=== PATIENT | male | born 1940 | race Caucasian/White ===

== ENCOUNTER 2019-03-15 10:59 | Inpatient (IN) ==
--- NOTE | 2019-02-04 15:47 | PAT Medication Instructions ---
Medication Instructions Date of Service February 04, 2019 Home Medications Calcium 600-D3 Plus 1 tab PO BIDM aspirin [Aspirin Low Dose] 81 mg PO QPM atenolol 25 mg PO QAM calcium carbonate [Tums] 200 mg PO BID PRN cholecalciferol (vitamin D3) [Vitamin D3] 1,000 unit PO QAM garlic 1,000 mg PO QAM glucos sul [id number]-avi-[id number]-C-Mn [Glucosamine Chondroitin] 1 cap PO BIDM irbesartan 150 mg PO QDL Men's 50 Plus Daily Formula 1 tab PO QPM omeprazole 20 mg PO Q OTHER DAY ASK your prescriber and surgeon aspirin [Aspirin Low Dose] 81 mg PO QPM STOP taking 2 weeks before surgery (or as soon as possible if surgery is within 2 weeks) garlic 1,000 mg PO QAM glucos sul [id number]-C-Mn [Glucosamine Chondroitin] 1 cap PO BIDM DO NOT take the morning of surgery Calcium 600-D3 Plus 1 tab PO BIDM calcium carbonate [Tums] 200 mg PO BID PRN cholecalciferol (vitamin D3) [Vitamin D3] 1,000 unit PO QAM irbesartan 150 mg PO QDL Take morning of surgery With a small sip of water, OTHERWISE NOTHING TO EAT OR DRINK AFTER MIDNIGHT: atenolol 25 mg PO QAM omeprazole 20 mg PO Q OTHER DAY Take evening before surgery Calcium 600-D3 Plus 1 tab PO BIDM calcium carbonate [Tums] 200 mg PO BID PRN (if needed) Men's 50 Plus Daily Formula 1 tab PO QPM Other Notes If you have any questions please call us at [phone] or [phone] or [phone] or [phone]
--- NOTE | 2019-02-05 10:30 | Anesthesiology Consultation ---
Date of Service February 05, 2019 Assessment & Plan (1) Encounter for pre-operative examination: Cardio: 04/11/18: no cardiac complaints. Stable aortic root size. "No further testing is necessary at this time." Monitoring with yearly ECHO's. Chart Review Chart Review: Acceptable Risk for Surgery and Patient seen in Pre Admission Testing Teaching & Discussion Pre-Anesthesia Teaching/Discussion Notes: Instructed NPO after midnight before surgery,except medications with 15 cc of water. Medication instructions provided according to the PAT guidelines. History Surgery Operation Date: 03/15/19 07:00 Proposed Procedures p Right Reverse Total Shoulder Arthroplasty - Andre Sterling DO Height/Weight Height: 5 ft 10 in Weight: 89.9 kg Allergies Allergy/AdvReac Type Severity Reaction Status Date / Time No Known Allergies Allergy Verified 01/30/19 10:10 Medications Home Medications Medication Instructions Recorded Confirmed Last Taken Ca-D3-mag tt-hdtg-zvx-chris-bor 1 tab PO BIDM 01/30/19 01/30/19 Unknown [Calcium 600-D3 Plus] aspirin [Aspirin Low Dose] 81 mg PO QPM 01/30/19 01/30/19 Unknown atenolol 25 mg PO QAM 01/30/19 01/30/19 Unknown calcium carbonate [Tums] 200 mg PO BID PRN 01/30/19 01/30/19 Unknown cholecalciferol (vitamin D3) 1,000 unit PO QAM 01/30/19 01/30/19 Unknown [Vitamin D3] garlic 1,000 mg PO QAM 01/30/19 01/30/19 Unknown glucos sul 3AYj-kzz-azshb-C-Mn 1 cap PO BIDM 01/30/19 01/30/19 Unknown [Glucosamine Chondroitin] irbesartan 150 mg PO QDL 01/30/19 01/30/19 Unknown cgcxeuta-jdj-zcnex-vit K-lycop 1 tab PO QPM 01/30/19 01/30/19 Unknown [Men's 50 Plus Daily Formula] omeprazole 20 mg PO Q OTHER DAY 01/30/19 01/30/19 Unknown Past Medical History Medical History Bifascicular block dating back to at least 2003 per cardio GERD (gastroesophageal reflux disease) controlled Glaucoma History of tooth extraction Hypertension Prediabetes borderline; diet controlled Rotator cuff tear right shoulder Thoracic aortic aneurysm (TAA) under surveillance by cardio; monitored with ECHOs; aortic root stable at 4.2cm on 03/2018 ECHO Exercise / Class Metabolic Activity II 4-5 Yardwork/Stairs/Walk up hill Past Family History Family History Sister Family history of diabetes mellitus Past Surgical History Surgical History History of colonoscopy Hx of left cataract extraction Hx of right cataract extraction Hx of surgical amputation of finger 2007 - D/T TRAUMATIC INJURY RIGHT MIDDLE FINGER Past Anesthesia History No Hx of Anesthesia Complications and No Family Hx of Anesthesia Complications History of PONV No Hx of PONV and No Hx of Motion Sickness Social History Smoking Status: Former smoker Do You Dip or Chew Tobacco: No Smoking End Date: QUIT 40 YEARS AGO Hx Alcohol Use: Yes Alcohol type: wine alcohol intake frequency: 0-2 drinks per day (1 glass wine/evening) Hx Substance Use: No Review of Systems Reflux controlled. Patient denies chest pain, shortness of breath, dyspnea on exertion, cough, wheezing, palpitations. Physical Exam Vital Signs VITALS BP 134/81 P 54 TEMP 98.2 SP02 94%RA RESP 18 PHYSICAL Full neck and c-spine range of motion. Full TMJ range of motion. TMD 3 finger breaths Mallampati Score 2 Dentition: full dentures upper/lower Lungs: clear throughout to auscultation Cardiac: regular rate and rhythm, no murmurs noted Spine: normal Carotid arteries: negative bruit Extremities: right third digit partial amputation Testing Laboratory Results 02/05/19 10:15 02/05/19 10:15 PT 10.8 Seconds (9.0-12.0) 02/05/19 10:15 INR 1.1 (0.9-1.1) 02/05/19 10:15 APTT 26.4 Seconds (21.0-31.0) 02/05/19 10:15 Blood Type B Positive 02/05/19 10:15 Antibody Screen NEGATIVE 02/05/19 10:15 Electrocardiogram Date: 04/11/18 SR at 63bpm. RBBB. LAFB. *Bifascicular block (dating back to at least 2003 per cardio).* Chest X-Ray Date: 08/20/19 Findings: + NAD Echocardiogram Date: 03/21/18 Mild cLVH. EF 55%. Mild AI. Aortic root 4.2cm.
--- NOTE | 2019-02-05 10:52 | XRay Report ---
XR chest Pre-admission PA/Lat CLINICAL HISTORY: PAT preoperative evaluation COMPARISON STUDY: No previous studies for comparison. FINDINGS: The bones soft tissues and hemidiaphragms are normal. The cardiomediastinal silhouette is n ormal. The lungs are clear. The pulmonary vasculature is normal. IMPRESSION: Negative chest. The above report was generated using voice recognition software. It may contain grammatical, syntax or spelling errors. Electronically signed by: Gopal Dudley M.D. 02/05/2019 10:50 AM
[2019-02-05 11:05] LABS: Basophils # (auto) 0.01 K/uL (0-0.2); Basophils % (auto) 0.2 %; Eosinophils # (auto) 0.17 K/uL (0-0.5); Eosinophils % (auto) 3.1 %; Hematocrit (blood only) 39.8 % (42-52); Hemoglobin 14.3 g/dL (14.0-18.0); Immature Granulocytes # (auto) 0.01 K/uL (0.00-0.02); Immature Granulocytes % (auto) 0.2 %; Lymphocytes # (auto) 1.78 K/uL (1.2-3.4); Lymphocytes % (auto) 32.3 %; Mean Corpuscular Hemoglobin 33.1 pg (25-34); Mean Corpuscular Hgb Conc 35.9 g/dL (32-36); Mean Corpuscular Volume 92.1 fL (80-100); Mean Platelet Volume 11.2 fL (7.4-10.4); Monocytes # (auto) 0.56 K/uL (0.11-0.59); Monocytes % (auto) 10.2 %; Neutrophils # (auto) 2.98 K/uL (1.4-6.5); Platelet Count 167 K/uL (130-400); RDW Coefficient of Variation 12.4 % (11.5-14.5); RDW Standard Deviation 41.9 fL (36.4-46.3); Red Blood Count 4.32 M/uL (4.7-6.1); White Blood Count 5.51 K/uL (4.8-10.8)
[2019-02-05 11:16] LABS: INR 1.1 (0.9-1.1); Partial Thromboplastin Time 26.4 Seconds (21.0-31.0); Prothrombin Time 10.8 Seconds (9.0-12.0)
[2019-02-05 11:32] LABS: BUN Creatinine Ratio 11.7 (10-20); Calcium 8.8 mg/dl (8.5-10.1); Creatinine Clr Calc Pharmacy 54.1 ml/min; Est GFR (African American) 63.1; Est GFR (Non-African American) 54.4; Potassium 4.1 mmol/L (3.5-5.1)
--- NOTE | 2019-03-15 06:22 | History & Physical Report ---
Date of Service March 15, 2019 Assessment & Plan (1) Rotator cuff arthropathy of right shoulder: We will proceed with a right reverse shoulder arthroplasty. Postoperatively he will be kept overnight in the hospital for postoperative medical management. He plans to use [facility] upon discharge. Present on Admission?: Yes History of Present Illness Chief Complaint: Rotator cuff arthropathy of the right shoulder Primary Care Provider: Arley Zabala MD Royal is a pleasant 78-year-old male who is been dealing with a 6-month history of increasing right shoulder pain. He denies any trauma. MRI and clinical examination have been diagnostic for rotator cuff arthropathy of the right shoulder. After failing conservative treatment, including multiple injections, he has elected to proceed with a right reverse shoulder arthroplasty. Allergies Allergy/AdvReac Type Severity Reaction Status Date / Time No Known Allergies Allergy Verified 01/30/19 10:10 Home Medications Home Medications Medication Instructions Recorded Confirmed Type Ca-D3-mag uf-iozq-yln-chris-bor 1 tab PO BIDM 01/30/19 01/30/19 History [Calcium 600-D3 Plus] aspirin [Aspirin Low Dose] 81 mg PO QPM 01/30/19 01/30/19 History atenolol 25 mg PO QAM 01/30/19 01/30/19 History calcium carbonate [Tums] 200 mg PO BID PRN 01/30/19 01/30/19 History cholecalciferol (vitamin D3) 1,000 unit PO QAM 01/30/19 01/30/19 History [Vitamin D3] garlic 1,000 mg PO QAM 01/30/19 01/30/19 History glucos sul 2UUl-lig-iudkm-C-Mn 1 cap PO BIDM 01/30/19 01/30/19 History [Glucosamine Chondroitin] irbesartan 150 mg PO QDL 01/30/19 01/30/19 History xkvdhrtm-sst-fgixb-vit K-lycop 1 tab PO QPM 01/30/19 01/30/19 History [Men's 50 Plus Daily Formula] omeprazole 20 mg PO Q OTHER DAY 01/30/19 01/30/19 History Past Med/Surg History Medical History Bifascicular block dating back to at least 2003 per cardio GERD (gastroesophageal reflux disease) controlled Glaucoma History of tooth extraction Hypertension Prediabetes borderline; diet controlled Rotator cuff tear right shoulder Thoracic aortic aneurysm (TAA) under surveillance by cardio; monitored with ECHOs; aortic root stable at 4.2cm on 03/2018 ECHO Surgical History History of colonoscopy Hx of left cataract extraction Hx of right cataract extraction Hx of surgical amputation of finger 2008 - D/T TRAUMATIC INJURY RIGHT MIDDLE FINGER Family History Sister Family history of diabetes mellitus Social History Preferred Language: Vietnamese Communication Ability: Effective Beliefs That Will Affect Care: None Current Living Situation: Spouse Feels Safe at Home: No Smoking Status: Former smoker Second Hand Exposure: No ; Hx Alcohol Use: Yes Alcohol type: wine Hx Substance Use: No Review of Systems All systems reviewed & are unremarkable except as noted in HPI & below Physical Exam Constitutional: WD/WN, vitals as above Eyes: PERRL, conjunctivae normal, anicteric sclerae ENMT: external ear and nose normal, oropharynx normal Neck: trachea midline, no thyromegaly Respiratory: normal respiratory effort Cardiovascular: RRR, no murmur, no edema Gastrointestinal (Abdomen): normal bowel sounds, soft, nontender, no hepatosplenomegaly Musculoskeletal: Physical examination of the right shoulder reveals decreased range of motion and significant weakness. There is tenderness palpation along the anterior glenohumeral joint line. The right upper extremity is neurovascularly intact. Psychiatric: A+Ox3, euthymic affect Results & Data Diagnostic Findings Radiographs of the right shoulder show some signs of osteoarthritis with blunting of the greater tuberosity and some superior migration of the humeral head on the glenoid.
[~2019-03-15 10:59] MED LIST: ACETAMINOPHEN 500 MG TAB PO SCH; BUPIVACAINE 0.5 % 5 MG/1 ML PF 10ML VIAL ONE; CEFAZOLIN 2000MG 2,000 MG/15 ML SYR IV SCH; FAMOTIDINE 20 MG TAB PO SCH; GABAPENTIN 300 MG CAP PO SCH; LR 15ML/HR IV SCH; LR 60ML/HR IV SCH; ROPIVACAINE 0.5% HCL/PF 150 MG, BUPIVACAINE 0.5% MPF 30 ML, EPINEPHrine 30MG/30ML (OR U... INFIL SCH; TRANEXAMIC ACID 1,000 MG **IV Intra-op IV SCH; TRANEXAMIC ACID 1,000 MG **IV Pre-op IV SCH
[2019-03-15] MEDS ORDERED: MIDAZOLAM HCL 1 MG/ML 2ML VIAL ONE (12:39)
[2019-03-15] MEDS ORDERED: fentaNYL citrate 100 MCG/2 ML VIAL ONE (12:39)
[2019-03-15] MEDS ORDERED: ORTHO JOINT ANESTHETIC ONE (12:55)
[2019-03-15] MEDS ORDERED: ATROPINE SULFATE 0.1 MG/ML 10ML SYR IV PRN (13:28)
[2019-03-15] MEDS ORDERED: ONDANSETRON INJ 2 MG/ML 2 ML VIAL IV PRN ×2 (13:28→17:12)
[2019-03-15] MEDS ORDERED: HYDROmorphone INJ 1 MG/ML SYRINGE IV PRN (13:28)
[2019-03-15] MEDS ORDERED: KETOROLAC 30 MG/ML VIAL IV PRN (13:28)
[2019-03-15] MEDS ORDERED: LABETALOL HCL IV 5 MG/ML 20ML IV PRN (13:28)
[2019-03-15] MEDS ORDERED: NEOSTIGMINE METHYLSULFATE 5 MG/5 ML SYR ONE (14:21)
[2019-03-15] MEDS ORDERED: ONDANSETRON INJ 2 MG/ML 2 ML VIAL ONE (14:21)
[2019-03-15] MEDS ORDERED: GLYCOPYRROLATE 0.2 MG/ML VIAL ONE (14:21)
[2019-03-15] MEDS ORDERED: PROPOFOL IV EMULSION 10 MG/ML 20 ML VIAL IV ONE (14:21)
[2019-03-15] MEDS ORDERED: ePHEDrine sulfate 50 MG/ML AMP ONE (14:21)
[2019-03-15] MEDS ORDERED: ROCURONIUM BROMIDE 10 MG/ML 5 ML VIAL ONE (14:21)
[2019-03-15] MEDS ORDERED: PHENYLEPHRINE 100MCG/ML 5ML SYR ONE (14:21)
--- NOTE | 2019-03-15 15:23 | Operative Report ---
Post Operative Report Pre & Post Diagnosis Operation Date: 03/15/19 13:40 Pre-Op Diagnosis: Right Shoulder rotator cuff arthropathy Post-Op Diagnosis: Right Shoulder rotator cuff arthropathy Procedure Operation Date: 03/15/19 13:40 Actual Procedures p Right Reverse Total Shoulder Arthroplasty(Right) - Andre Sterling DO Surgeon Andre Sterling DO Rail Car Painter/Sandblaster Andre Michele PAC Estimated Blood Loss 300 Findings Consistent with Post-Op Diagnosis Specimens Right humeral head Complications none Disposition Disposition: Recovery Room Indications Royal is a pleasant 79-year-old male who presented my office with complaints of chronic increasing right shoulder pain. MRI and clinical examination were diagnostic for cuff arthropathy of the right shoulder. After failing conservative treatment, he elected to proceed with a right reverse shoulder arthroplasty. Description of Procedure Implants used: I used a [employer]omet Comprehensive reverse total shoulder arthroplasty system with a size 12 press fit mini humeral stem, a standard humeral tray and a standard humeral bearing, a standard baseplate with a 6.5 mm central screw and superior and inferior locking screws, and a size 40 mm eccentric glenosphere. The patient arrived at [facility] for the above procedure. There were seen in the preoperative holding area and the operative extremity was identified and signed. They were given a preoperative antibiotic and an interscalene nerve block. They were taken back to the operating room, laid on table in supine position, and put under general anesthesia. They were then put into the beachchair position. The shoulder was then prepped and draped in sterile fashion. A timeout was done and the patient in the operative extremity was properly identified. A deltopectoral approach was used. Dissection was taken down through the fascia and the deltoid was retracted laterally and the conjoined tendon was retracted medially. The anterior shoulder was exposed. The long head of the biceps tendon was tenodesed to the upper border of the pectoralis major. The subscapularis was then released off the lesser tuberosity with a centimeter of cuff tissue remaining. The inferior capsule was released and the humeral head was dislocated. A canal finding reamer was sent down the center of the humeral canal. Sequential reaming up to a size 12 reamer was done. Off that reamer, a proximal humeral resection guide was placed. The proximal humerus was resected at 135 of inclination and 25 of retroversion. Osteophytes were then removed and the glenoid was exposed. Time was spent doing a complete capsular and labral release. The glenoid guide was then placed in the inferior aspect of the glenoid. A 3.2 mm Steinmann pin was then placed into the glenoid vault at 10 of inclination. The glenoid baseplate was then reamed. The final size standard baseplate was then impacted in the place. A 6.5 mm central screw was then placed followed by superior and inferior locking screws. A 40 mm eccentric glenoid sphere was then impacted into place. Surrounding soft tissues were then injected with 100 cc an orthopedic pain control cocktail. The proximal humerus was then exposed. Sequential broaching of the humerus up to a size 12 broach was done. Off that broach a standard humeral tray was trialed. The shoulder was then reduced, brought through a full range of motion and felt to be stable. The shoulder was then dislocated and the broach was removed. The final size 12 mini press-fit humeral stem was then impacted into place. A standard humeral bearing was then snapped onto a standard humeral tray and the ring-lock mechanism was engaged. The humeral tray was then impacted onto the humeral stem. The shoulder was once again reduced, brought through a full range of motion and felt to be stable. The subscapularis was then tenodesed back to the lesser tuberosity with transosseous FiberWire sutures and side to side sutures with the arm in 45 of external rotation. A dilute betadyne lavage was then done for 3 minutes. The joint was then irrigated with normal saline solution. Hemostasis was obtained. The skin was then closed with 2-0 Vicryl, 3-0V lock suture, and taylor. A soft dressing and a regular arm sling was placed. The patient was then extubated and transferred to a hospital bed. They were taken to the postanesthesia care unit in stable condition. They tolerated the procedure well. I attest to the content of the Intraoperative Record and any orders documented therein. Any exceptions are noted below.
--- NOTE | 2019-03-15 16:05 | XRay Report ---
XR shoulder RT min 2V routine HISTORY: 79 years-old Male Post shoulder surgery right shoulder arthroplasty COMPARISON: Chest radiograph 02/05/2019 TECHNIQUE: 2 views of the right shoulder FINDINGS: Reverse right shoulder total joint arthroplasty demonstrates satisfactory alignment. Overlying skin s taples are noted along with expected postsurgical soft tissue swelling and deep tissue air. Moderate degenerative changes about the right AC joint. Right lung base opacities suggest atelectasis. IMPRESSION: Satisfactory positioning of the reverse right shoulder total joint arthroplasty. The above report was generated using voice recognition software. It may contain grammatical, syntax o r spelling errors. Electronically signed by: Gonzalo Post M.D. 03/15/2019 4:03 PM
--- NOTE | 2019-03-15 16:16 | Anesthesiology Progress Note ---
Date of Service March 15, 2019 Anesthesia Post Procedure Vital Signs Vital Signs: Temp Pulse Pulse Resp BP Pulse Ox 03/15/19 16:05 36.1 C L 60 17 158/77 H 96 03/15/19 15:55 36.1 C L 62 21 165/82 H 94 03/15/19 15:45 36.1 C L 63 22 153/83 H 95 03/15/19 15:37 36.1 C L 58 L 18 149/73 H 95 03/15/19 11:53 37.0 C 59 L 20 169/82 H 98 Transfer of Care Handoff Completed per policy Notes Mental Status: alert / awake / arousable Patient Amnestic to Procedure: Yes Nausea / Vomiting: adequately controlled Pain: adequately controlled Airway Patency, RR, SpO2: stable & adequate BP & HR: stable & adequate Hydration State: stable & adequate Anesthetic Complications: no major complications apparent and Pt Satisfied with anesthetic care
[2019-03-15] MEDS ORDERED: METOCLOPRAMIDE HCL INJ 5 MG/ML 2 ML VIAL IV PRN (17:12)
[2019-03-15] MEDS ORDERED: OXYCODONE HCL IR 5 MG TAB (IMMEDIATE RELEASE) PO PRN (17:12)
[2019-03-15] MEDS ORDERED: HYDROmorphone INJ 0.5 MG/0.5 ML SYR IV PRN (17:12)
[2019-03-15] MEDS ORDERED: bisacodyL 10 MG SUPP PR PRN (17:12)
[2019-03-15] MEDS ORDERED: NALOXONE HCL 0.4 MG/1 ML VIAL/CARP IV PRN (17:12)
[2019-03-15] MEDS ORDERED: NON-FORMULARY MEDICATION (Glucos Sul 2kcl-Msm-Chond-C-Mn [Glucosamine Chondroitin] 1 CAP) PO SCH (17:12)
[2019-03-15] MEDS ORDERED: CALCIUM CARBONATE 500 MG CHEWABLE TAB PO PRN (17:12)
[2019-03-15] MEDS ORDERED: MAGNESIUM HYDROXIDE SUSP 30 ML UDC PO PRN (17:12)
[2019-03-15] MEDS: KETOROLAC TROMETHAMINE 15 MG/ML VIAL IV SCH (18:34)
[2019-03-15] MEDS ORDERED: ASPIRIN 81 MG ECTAB PO SCH (21:00)
[2019-03-15] MEDS ORDERED: [UNRECOGNIZED DRUG - OTHER] PO SCH (21:00)
[2019-03-15] MEDS: SENNA 8.6 MG TAB PO SCH ×2 (21:31→22:20)
[2019-03-15] MEDS: DOCUSATE SODIUM 100 MG CAP PO SCH (21:32)
[2019-03-15] MEDS: CEFAZOLIN 2000MG 2,000 MG/15 ML SYR IV SCH (21:33)
[2019-03-16] MEDS: KETOROLAC TROMETHAMINE 15 MG/ML VIAL IV SCH ×2 (00:33→05:49)
[2019-03-16] MEDS: SODIUM CHLORIDE 0.9% 1000ML 1,000 ML IV SCH ×2 (01:59→08:37)
[2019-03-16] MEDS: CEFAZOLIN 2000MG 2,000 MG/15 ML SYR IV SCH (05:51)
[2019-03-16 06:35] LABS: BUN Creatinine Ratio 13.9 (10-20); Calcium 8.2 mg/dl (8.5-10.1); Creatinine Clr Calc Pharmacy 38.6 ml/min; Est GFR (African American) 42.3; Est GFR (Non-African American) 36.5; Potassium 4.3 mmol/L (3.5-5.1)
[2019-03-16 08:02] LABS: Basophils # (auto) 0.01 K/uL (0-0.2); Basophils % (auto) 0.1 %; Eosinophils # (auto) 0.01 K/uL (0-0.5); Eosinophils % (auto) 0.1 %; Hemoglobin 13.7 g/dL (14.0-18.0); Immature Granulocytes # (auto) 0.05 K/uL (0.00-0.02); Immature Granulocytes % (auto) 0.3 %; Lymphocytes # (auto) 0.92 K/uL (1.2-3.4); Lymphocytes % (auto) 5.6 %; Mean Corpuscular Hemoglobin 33.2 pg (25-34); Mean Corpuscular Hgb Conc 35.1 g/dL (32-36); Mean Corpuscular Volume 94.4 fL (80-100); Mean Platelet Volume 11.6 fL (7.4-10.4); Monocytes # (auto) 1.19 K/uL (0.11-0.59); Monocytes % (auto) 7.3 %; Neutrophils # (auto) 14.11 K/uL (1.4-6.5); Neutrophils % (auto) 86.6 %; Platelet Count 191 K/uL (130-400); RDW Coefficient of Variation 12.7 % (11.5-14.5); RDW Standard Deviation 43.8 fL (36.4-46.3); Red Blood Count 4.13 M/uL (4.7-6.1); White Blood Count 16.29 K/uL (4.8-10.8)
[2019-03-16] MEDS: DOCUSATE SODIUM 100 MG CAP PO SCH (08:36)
[2019-03-16] MEDS ORDERED: NON-FORMULARY MEDICATION (Garlic 1,000 MG) PO SCH (09:00)
[2019-03-16] MEDS ORDERED: MULTIVITAMIN TAB PO SCH (09:00)
[2019-03-16] MEDS ORDERED: PANTOprazole 40 MG TAB PO SCH (09:00)
[2019-03-16] MEDS ORDERED: ATENOLOL 25 MG TABLET PO SCH (09:00)
[2019-03-16] MEDS ORDERED: CHOLECALCIFEROL 1,000 UNITS TAB PO SCH (09:00)
--- NOTE | 2019-03-16 09:04 | Orthopedic Progress Note ---
Date of Service March 16, 2019 Assessment & Plan (1) Rotator cuff arthropathy of right shoulder: Overall is doing very well. Is not having much pain in the right shoulder. He will be seen by physical therapy today for ambulation and range of motion exercises. He can be discharged to home later today with [facility]. He will follow-up with orthopedics in 2 weeks. Present on Admission?: Yes Subjective Royal was seen and examined at bedside this morning. Overall is doing very well. Is not having much pain in his right shoulder. He is happy with his progress to this point. He has no complaints. Physical Exam Musculoskeletal: On physical examination of the right shoulder, the dressing is clean and dry. His radial, median, and ulnar nerves are checked and intact his wrist. His axillary nerve is not checked yet. He is wearing a sling as instructed. Results & Data Vital Signs (Past 12 Hours) Vital Signs Temp Pulse Resp BP Pulse Ox 03/16/19 07:31 36.7 C 93 H 16 117/70 94 03/16/19 02:55 36.5 C 97 H 16 122/71 92 03/15/19 23:46 36.8 C 98 H 16 122/77 93 Laboratory Results H & H 02/05/19 03/16/19 Range/Units 10:15 05:49 Hgb 14.3 13.7 L (14.0-18.0) g/dL Hct 39.8 L 39.0 L (42-52) % Coagulation 02/05/19 Range/Units 10:15 INR 1.1 (0.9-1.1) Diagnostic Findings Postoperative x-rays of the right shoulder show the prosthesis to be in anatomic alignment without any evidence of fracture dislocation or loosening. PG Care Time/CCT Total # of Minutes Spent Total Time Spent with Patient: Total time spent is greater than 50% in coordination of care (as documented) at patient's floor/unit and/or counseling patient:
--- NOTE | 2019-03-16 09:05 | Discharge Summary ---
Date of Service March 16, 2019 Admission HPI Per Admitting Provider Royal is a pleasant 78-year-old male who is been dealing with a 6-month history of increasing right shoulder pain. He denies any trauma. MRI and clinical examination have been diagnostic for rotator cuff arthropathy of the right shoulder. After failing conservative treatment, including multiple injections, he has elected to proceed with a right reverse shoulder arthroplasty. Principal Diagnosis Right reverse shoulder arthroplasty Discharge Data Allergies Allergy/AdvReac Type Severity Reaction Status Date / Time No Known Allergies Allergy Verified 03/15/19 11:46 Consultations 03/15/19 17:12 Consult Case Management - Discharge Planning Routine Procedures Performed Operation Date: 03/15/19 13:40 Actual Procedures p Right Reverse Total Shoulder Arthroplasty(Right) - Andre Sterling DO Ordered Studies 03/15/19 05:00 US - OR guided needle placemen Routine Hospital Course (1) Rotator cuff arthropathy of right shoulder: On March 15, 2019 Royal arrived at [facility] and underwent a right reverse shoulder arthroplasty without complication. He had a general anesthetic and a right interscalene nerve block. Postoperatively he was placed in an arm sling and discharged to general orthopedic floors. His hospital course was uneventful. On postop day #1 his H&H was stable and his pain was well controlled. He was able to participate well with physical therapy doing ambulation and range of motion exercises. He was then discharged home with [facility]. He will follow-up with orthopedics in 2 weeks. Total Time Total Time Spent Total Time Spent (In Minutes): 20 Discharge Plan Discharge Items Patient Disposition: Home - Home Health Services Reason For Visit: Right Shoulder Dengerative Joint Disease Discharge Diagnosis: Right reverse shoulder arthroplasty Activity: As commented below Non-emergency contact: Surgeon Call non-emergency contact if: your wound has increased redness and your wound has increased drainage Follow-up/Referrals: Arley Zabala MD [Primary Care Provider] - Diet: Regular Addtl Attending Provider Instructions: Activity and Therapy Recommendations: * If you are using [facility] then therapy will be provided at your home until they feel you have accomplished all of your goals. * If you are using [facility] then Physical Therapy will be provided until they feel you are ready to start Outpatient Physical Therapy. * If you are not using home therapy then Outpatient Physical Therapy should start about 3-5 days from your day of surgery. Therapy will last about 8-12 weeks * Wear your sling for 3 weeks, unless otherwise instructed. You may remove your sling to shower and to dress, but otherwise, you should be in your sling at all times, including while sleeping * The shoulder replacement is very stable and you can use your hand while in the sling * You were shown a series of exercises in the hospital. Do these exercises daily including the exercises you were shown in physical therapy. Medications: * Narcotic You will likely be sent home from the hospital with a prescription for the narcotic pain medication that worked best throughout your stay. * Other medications may be prescribed for specific circumstances. If you have any questions, please call the office at . * Resume previous home medications unless otherwise instructed Dressing Care: Leave the plastic dressing in place for 5 days. After 5 days you may remove the plastic dressing. If the incision is not draining then you may leave the taylor open to air. If there is a little bit of drainage or if the taylor are getting stuck on your clothing then cover the incision with a dry dressing. The taylor will be removed at your 2 week follow-up appointment. Showering: You may shower with the plastic dressing in place. Let the shower spray hit the other shoulder. You can pat the plastic dry. If the dressing becomes wet underneath the plastic then simply remove the dressing. Keep the incision dry until you are 5 days out from the day of surgery. At that time you can shower with the taylor exposed. Let the soapy shower water run over the taylor and pat them dry. Do not scrub or soak the incision. Things To Watch For: * Drainage from the incision site that occurs more than one week after your honeycutt rgery. * Increased redness at the incision site. * Fever above 102 degrees Fahrenheit. * Unusual chest pain or shortness of breath. * Call [facility] at with any of the above problems Follow-Up Visit: Follow-up with Dr. Sterling 2-3 weeks after your day of surgery. An appointment was probably scheduled when you signed-up for surgery in the office. If you have any questions call Office Instructions: More detailed instructions as well as Frequently Asked Questions were provided in a folder by our office when you signed-up for surgery. Please review these instructions when you get home. If you have any further questions or concerns, please feel free to call the office at [phone] Pending Studies at Discharge: No Stand-Alone Forms: My [facility] Medications and DC Order Prescriptions: New oxycodone 5 mg Tablet 5 mg PO Q4H PRN (Reason: pain) Qty: 30 RF: 0 Continued atenolol 25 mg Tablet 25 mg PO QAM RF: 0 aspirin [Aspirin Low Dose] 81 mg Tablet,Delayed Release (Dr/Ec) 81 mg PO QPM RF: 0 garlic 1,000 mg Capsule 1,000 mg PO QAM RF: 0 calcium carbonate [Tums] 200 mg calcium (500 mg) Tablet,Chewable 200 mg PO BID PRN (Reason: GERD) RF: 0 irbesartan 150 mg Tablet 150 mg PO QDL RF: 0 cholecalciferol (vitamin D3) [Vitamin D3] 1,000 unit Capsule 1,000 unit PO QAM RF: 0 omeprazole 20 mg Tablet,Delayed Release (Dr/Ec) 20 mg PO Q OTHER DAY RF: 0 Men's 50 Plus Daily Formula 400-20-370 mcg Tablet 1 tab PO QPM RF: 0 Ca-D3-mag sv-iarp-vhl-chris-bor [Calcium 600-D3 Plus (mag-zinc)] 600 mg calcium- 800 unit-50 mg Tablet 1 tab PO BIDM RF: 0 Glucosamine Chondroitin 550-30-1 mg Capsule 1 cap PO BIDM RF: 0 Discharge Orders: Discharge Order (Routine); Ordered 03/16/19 Ordered By: Andre Sterling Admission Data Admit Date/Time: 03/15/19 15:26 Attending Provider: Andre Sterling Admit Provider: Andre Sterling Primary Care Provider: Arley Zabala
[2019-03-16] MEDS ORDERED: IRBESARTAN 150 MG TAB PO SCH (11:30)
[2019-03-16] MEDS ORDERED: INFLUENZA VACCINE HIGH DOSE 65+ 0.5 ML SYR IM ONE (11:45)
[2019-03-16] MEDS ORDERED: INFLUENZA ADMINISTRATION CHARGE ONE ×2 (11:45→12:30)
[2019-03-16] MEDS ORDERED: INFLUENZA VIRUS QUAD VACCINE 0.5 ML SYR IM ONE (12:30)
== END 2019-03-16 11:32 | disposition home health service (06) | DRG 483 ==
LOC: ASU 10:59 → 3E 15:26